=== PATIENT | female | born 1965 | race Caucasian/White ===

== ENCOUNTER 2016-11-22 02:25 | Emergency (ER) | payer OTHER ==
[~2016-11-22] VITALS: Ht 157.5 cm; Wt 78.5 kg
[2016-11-22 03:33] VITALS: Ht 157.5 cm; Wt 78.5 kg
[2016-11-22 06:07] LABS: URINE BLOOD (Dip) POC 3+ (NEGATIVE)
[2016-11-22] MEDS ORDERED: ACETAMINOPHEN 500 MG TAB PO STA (06:19)
[2016-11-22] MEDS ORDERED: CIPR500T4 PO (06:27)
[2016-11-22] MEDS ORDERED: PHEN-538 PO (06:27)
--- NOTE | 2016-11-22 08:23 | ERD ---
ER Documentation Chief Complaint Date/Time DATE: 11/22/16 TIME: 08:19 Chief Complaint Dysuria and hematuria since last night HPI 51-year-old female presents to the emergency department complaining of painful urination, hematuria since last night. Patient states that she has had this in the past. Patient has not taken medications for this. She was having mild chills, she denies any flank pain. Patient admits to having mild pelvic pain ROS All systems reviewed and are negative except as per history of present illness. Medications Home Meds Active Scripts Phenazopyridine Hcl* (Pyridium*) 200 Mg Tab, 200 MG PO TID Y for URINARY PAIN, # 6 TAB Prov:MARCY JARRETT PA-C 11/22/16 Ciprofloxacin Hcl* (Ciprofloxacin Hcl*) 500 Mg Tablet, 500 MG PO BID for 7 Days , TAB Prov:MARCY JARRETT PA-C 11/22/16 Allergies Allergies: Coded Allergies: carbamazepine (Verified Allergy, Intermediate, 11/22/16) PMhx/Soc Hx Alcohol Use: No Hx Substance Use: No Hx Tobacco Use: No Smoking Status: Never smoker Physical Exam Vitals Vital Signs Date Time Temp Pulse Resp B/P Pulse Ox O2 Delivery O2 Flow Rate FiO2 11/22/16 03:33 100.3 120 20 125/71 100 Physical Exam GENERAL: well-developed/well-nourished, in no apparent distress, non-toxic appearing HENT: NC/AT, moist mucous membranes EYES: Conjunctiva normal NECK: Supple, no lymphadenopathy PULM: CTA bilaterally, no rales, rhonchi, or wheezing heard CV: Normal S1S2, RRR, good capillary refill GI: Soft, non-distended, mild tender to palpation in the pelvic region Normal bowel sounds, no masses or organomegaly felt on exam No gross peritonitis, no bruits Negative Rovsing, negative Mark, negative McBurney's point, Negative CVAT BACK: No masses EXT: No clubbing, cyanosis, or edema NEURO: Alert and Orientated SKIN: Intact, normal turgor PSYCH: Normal mood and mentation Results 24 hrs Laboratory Tests Test 11/22/16 06:05 Bedside Urine Blood 3+ Bedside Urine Glucose (UA) Negative Bedside Urine Ketones (LAB) Negative Bedside Urine Leukocyte Esterase (L 2+ Bedside Urine Nitrite (LAB) Negative Bedside Urine Protein (LAB) 1+ Bedside Urine pH (LAB) 7.0 Current Medications Medications (Trade) Dose Ordered Sig/Beatriz Route PRN Reason Start Time Stop Time Status Last Admin Dose Admin Acetaminophen (Tylenol Tab) 1,000 mg ONCE STAT PO 11/22/16 06:19 11/22/16 06:23 DC 11/22/16 06:32 Procedures/MDM This is a 51-year-old female presenting to the emergency department complaining of symptoms that are most consistent with a urinary tract infection/acute cystitis with hematuria. There was no evidence of nephrolithiasis or pyelonephritis. Patient appears well, she looks nontoxic. Patient did not have any CVA tenderness or significant abdominal pain. A urine dipstick was done in the ED and it was showed positive for urinary tract infection and hemoglobin. Patient was given a prescription for Cipro and Pyridium. A urine culture was sent out. Discussed to follow-up with primary care physician. Discussed return to the ER for any worsening symptoms. Patient understands and agrees with plan Departure Diagnosis: Primary Impression: UTI (urinary tract infection) Condition: Stable Patient Instructions: When Your Child Has a Urinary Tract Infection (UTI) Additional Instructions: Visite a [facility] para un EXAMEN.Regrese a estas instalaciones si no se mejora ivy esperbamos o ivy le dijimos. [place] toda la medicina sung y ivy se le indic. Regrese a estas instalaciones si no se mejora ivy esperbamos o ivy le dijimos. MARCY JARRETT PA-C Nov 22, 2016 08:22
== END 2016-11-22 06:35 | disposition home or self-care (01) ==
LOC: FTE 02:25
DX: N39.0 Urinary tract infection, site not specified (principal)
CPT/HCPCS: 81003; 87086; Z7502; Z7610; 99283